=== PATIENT | male | born 1965 | race Asian ===

== ENCOUNTER 2017-11-06 13:07 | Emergency (ER) | payer BC ==
[2017-11-06] MEDS ORDERED: Acetaminophen/HYDROcodone 325-10 MG Tab PO ONE (13:38)
--- NOTE | 2017-11-06 13:44 | EDM.PDOC ---
Scribed by Delmy Weinstein 11/06/17 1344 for Donnie Gore MD ED HPI GENERAL MEDICAL PROBLEM - General Chief Complaint: Chest Pain Stated Complaint: [id number] FELL DOWN HURT RIB Time Seen by Provider: 11/06/17 13:17 Source of Information: Reports: Patient, RN, RN Notes Reviewed History Limitations: Reports: No Limitations - History of Present Illness INITIAL COMMENTS - FREE TEXT/NARRATIVE: Patient presents to ER with complaint of falling while getting into the boat on Tuesday night landing on concrete slab to the right ribs. Patient states that he has tried extra strength Tylenol twice, last done Tuesday night. States that the pain increases with coughing. Onset Date: 11/04/17 Duration: Getting Worse Location: Reports: Other (right ribs) Quality: Reports: Ache Severity: Moderate Improves with: Reports: None Worsens with: Reports: None Associated Symptoms: Reports: No Other Symptoms Right Thoracic Pain Score (Numeric/FACES): 7 - Related Data Allergies Allergy/AdvReac Type Severity Reaction Status Date / Time No Known Allergies Allergy Verified 11/06/17 13:13 Home Meds: Home Meds . [Unable to Verify Home Med List] 11/06/17 [History] Past Medical History Cardiovascular History: Reports: High Cholesterol, Hypertension Social & Family History - Family History Family Medical History: Noncontributory - Living Situation & Occupation Living situation: Reports: , with Family Occupation: Employed ED ROS GENERAL - Review of Systems Review Of Systems: ROS reveals no pertinent complaints other than HPI. ED EXAM, GENERAL - Physical Exam Exam: See Below Exam Limited By: No Limitations General Appearance: Alert, WD/WN, No Apparent Distress Nose: Normal Inspection Throat/Mouth: Normal Inspection, Normal Voice, No Airway Compromise Head: Atraumatic, Normocephalic Neck: Normal Inspection, Non-Tender, Full Range of Motion Respiratory/Chest: No Respiratory Distress, No Accessory Muscle Use, Decreased Breath Sounds, Splinting, Other (Rt posterior chest wall tenderness to palpation , no visible bruising, swelling, no crepitus). No: Crackles, Rales, Rhonchi, Wheezing, Stridor Cardiovascular: Normal Peripheral Pulses, Regular Rate, Rhythm, No Edema, No Gallop, No JVD, No Murmur, No Rub GI/Abdominal: Normal Bowel Sounds, Soft, Non-Tender, No Distention Back Exam: CVA Tenderness (R), Decreased Range of Motion. No: CVA Tenderness (L ), Vertebral Tenderness Extremities: Normal Inspection, Normal Range of Motion, Non-Tender, Normal Capillary Refill, No Pedal Edema Neurological: Alert, Oriented, CN II-XII Intact, Normal Cognition, Normal Gait, No Motor/Sensory Deficits Psychiatric: Normal Affect, Normal Mood Skin Exam: Warm, Dry, Intact, Normal Color, No Rash Course - Vital Signs Last Recorded V/S: Last Vital Signs Temp 36.6 C 11/06/17 13:10 Pulse 90 11/06/17 13:10 Resp 18 11/06/17 13:10 BP 155/98 H 11/06/17 13:10 Pulse Ox 98 11/06/17 13:10 - Orders/Labs/Meds Orders: Active Orders 24 hr Category Date Time Status Ribs 2V wo Chest Rt [CR] Urgent Exams 11/06/17 13:19 Taken Acetaminophen/HYDROcodone [[place] 325-10 MG] Med 11/06/17 13:38 Once 1 tab PO ONETIME ONE Medication Orders Hydrocodone Bitart/Acetaminophen ([place] 325-10 Mg) 1 tab PO ONETIME ONE Stop: 11/06/17 13:39 Meds: Medications Generic Name Dose Route Start Last Admin Trade Name Angy PRN Reason Stop Dose Admin Hydrocodone Bitart/Acetaminophen 1 tab 11/06/17 13:38 [place] 325-10 Mg PO 11/06/17 13:39 ONETIME ONE - Radiology Interpretation Free Text/Narrative:: X-ray Rt ribs: rib fracture, non-displaced, see Rad. report. Departure - Departure Time of Disposition: 13:42 Disposition: Home, Self-Care 01 Condition: Good Clinical Impression: Right rib fracture Qualifiers: Encounter type: initial encounter Rib fracture type: multiple ribs Fracture type: closed Qualified Code(s): S22.41XA - Multiple fractures of ribs, right side, initial encounter for closed fracture - Discharge Information Instructions: Rib Fracture, [id number] Forms: ED Department Discharge Additional Instructions: Rx: [place] 5mg/325mg *Do not drive while under the influence of this medication. Follow up in clinic in 7 to 10 days for recheck if needed. - My Orders Last 24 Hours: My Active Orders 09/02/18 13:19 Ribs 2V wo Chest Rt [CR] Urgent 11/06/17 13:38 Acetaminophen/HYDROcodone [[place] 325-10 MG] 1 tab PO ONETIME ONE - Assessment/Plan Last 24 Hours: My Active Orders 11/06/17 13:19 Ribs 2V wo Chest Rt [CR] Urgent 11/06/17 13:38 Acetaminophen/HYDROcodone [[place] 325-10 MG] 1 tab PO ONETIME ONE I have read and agree with the documentation that has been completed regarding this visit. By signing this record, I attest that the documentation was completed in my physical presence and is an accurate record of the encounter.
== END 2017-11-06 14:06 | disposition home or self-care (01) ==
LOC: DL.ED 13:07
DX: S22.41XA Multiple fractures of ribs, right side, initial encounter for closed fracture (principal); I10 Essential (primary) hypertension; W18.30XA Fall on same level, unspecified, initial encounter
CPT/HCPCS: 71100; 81001; 99283; A9270